=== PATIENT | female | born 1945 | race African-American/Black ===

== ENCOUNTER 2021-05-27 10:57 | Day surgery (SDC) | payer OTHER ==
[2021-05-22 11:06] LABS: PLATELET COUNT 174 K/uL (152-353)
[2021-05-22 11:16] LABS: POTASSIUM 4.4 mmol/L (3.6-5.2)
[~2021-05-27] VITALS: Ht 30.5 cm; Wt 0.5 kg
== END 2021-05-27 14:15 | disposition home or self-care (01) ==
LOC: OR 10:57
PROVIDERS: ATTEND Internal Medicine Gastroenterology
PROC: 0DBN8ZZ Excision of Sigmoid Colon, Via Natural or Artificial Opening Endoscopic (ICD-10-PCS; principal; 2021-05-27)
DX: D12.5 Benign neoplasm of sigmoid colon (principal); K57.30 Diverticulosis of large intestine without perforation or abscess without bleeding; K64.8 Other hemorrhoids; Z12.11 Encounter for screening for malignant neoplasm of colon; Z87.898 Personal history of other specified conditions; Z20.822 Contact with and (suspected) exposure to COVID-19
CPT/HCPCS: 80053; 85027; 87635; J2001; J2704; U0003

== ENCOUNTER 2021-12-28 08:14 | Outpatient (CLI) | payer OTHER | END 2021-12-28 18:46 | disposition home or self-care (01) | LOC: NM 08:14 | PROVIDERS: ATTEND Internal Medicine Gastroenterology | DX: R11.2 Nausea with vomiting, unspecified (principal) | CPT/HCPCS: A9541 ==

== ENCOUNTER 2023-08-02 13:27 | Outpatient (CLI) | payer OTHER | END 2023-08-02 20:19 | disposition home or self-care (01) | LOC: LABW 13:27 | PROVIDERS: ATTEND Internal Medicine Gastroenterology | DX: K59.1 Functional diarrhea (principal) | CPT/HCPCS: 82272; 82656; 82705; 83630; 87015; 87045; 87324; 87328; 87329; 87449; 87899 ==